=== PATIENT | male | born 2000 | race Caucasian/White ===

== ENCOUNTER 2023-07-11 07:59 | Outpatient (RCR) | payer OTHER, SELFPAY | END 2023-08-28 14:25 | disposition home or self-care (01) | LOC: HO.WCC 07:59 | PROVIDERS: Visit Provider Surgery | DX: S81.811A Laceration without foreign body, right lower leg, initial encounter (principal); F10.90 Alcohol use, unspecified, uncomplicated; I10 Essential (primary) hypertension | CPT/HCPCS: 11042; 99212 ==